=== PATIENT | male | born 1975 | race Caucasian/White ===

== ENCOUNTER → 2016-09-28 | Outpatient (CLI) | payer OTHER | LOC: FIMAGING 07:43 | PROVIDERS: ATTEND Family Medicine | DX: K82.9 Disease of gallbladder, unspecified (principal) | CPT/HCPCS: A9537 ==

== ENCOUNTER → 2017-05-01 | Outpatient (CLI) | payer OTHER | LOC: CIMAGING 09:21 | PROVIDERS: ATTEND Physician Assistant | DX: R10.11 Right upper quadrant pain (principal); Z90.49 Acquired absence of other specified parts of digestive tract | CPT/HCPCS: 76705-PO ==

== ENCOUNTER → 2018-10-12 | Outpatient (CLI) | payer OTHER | LOC: CIMAGING 11:01 ==